=== PATIENT | female | born 1985 | race African-American/Black ===

== ENCOUNTER 2018-04-16 03:45 | Emergency (ER) | payer MEDICAID, OTHER ==
[~2018-04-16] VITALS: Ht 162.6 cm; Wt 104.3 kg
[~2018-04-16 03:45] MED LIST: ALBUAER3 IN; AZITTAB11 PO; IPRIH IN; PRED-188 PO
[2018-04-16 04:00] VITALS: BP 127/77
[2018-04-16 05:30] LABS: Urine Bacteria NONE SEEN /hpf (None Seen); Urine Blood 3+ /uL (Negative); Urine Specific Gravity 1.017 (1.001-1.035); Urine WBC 105 /hpf (0 - 5)
[2018-04-16 06:07] LABS: Basophils # (auto) 0 uL; Basophils % (auto) 0.3 % (0.0-2.0); Eosinophils # (auto) 0.2 uL; Eosinophils % (auto) 3.4 % (0.0-7.0); Hematocrit 36.6 % (36.0-46.0); Hemoglobin 12.5 g/dL (12.2-16.2); Lymphocytes # (auto) 1.5 uL; Lymphocytes % (auto) 22.3 % (10.0-50.0); Mean Corpuscular Hemoglobin 30.4 pg (28.0-32.0); Mean Corpuscular Hgb Conc. 34.2 g/dL (32.0-36.0); Mean Corpuscular Volume 88.7 fL (80.0-100.0); Monocytes # (auto) 0.4 uL; Monocytes % (auto) 6.5 % (0.0-12.0); Neutrophils # (auto) 4.6 uL; Neutrophils % (auto) 67.5 % (37.0-80.0); Nucleated Red Blood Cells % 0.1 %; Platelet Count (auto) 399 10^3/uL (140-450); Red Blood Cells 4.13 10^6/uL (4.0-5.20); Red Cell Distribution Width 14.3 % (11.8-14.3); White Blood Cell 6.8 10^3/uL (4.4-10.8)
[2018-04-16 06:25] LABS: Albumin 3.3 g/dL (3.4-5.0); BUN/Creatinine Ratio 11.9; Calcium 8.5 mg/dL (8.5-10.1); Potassium 3.9 mmol/L (3.5-5.1)
[2018-04-16 06:27] LABS: Bilirubin, Total 0.3 mg/dL (0.2-1.0); Total Protein 7.9 g/dL (6.4-8.2)
== END 2018-04-16 08:43 | disposition home or self-care (01) ==
LOC: ER 03:50
DX: O23.41 Unspecified infection of urinary tract in pregnancy, first trimester (principal); J45.909 Unspecified asthma, uncomplicated; Z79.899 Other long term (current) drug therapy; Z79.2 Long term (current) use of antibiotics; Z3A.09 9 weeks gestation of pregnancy
CPT/HCPCS: 36415; 76801; 80053; 81001; 84702; 85025

== ENCOUNTER 2018-08-17 15:19 | Observation (INO) | payer MEDICAID ==
[2018-08-17] MEDS ORDERED: PREN-96 PO (17:50)
== END 2018-08-17 17:10 | disposition home or self-care (01) | DRG 566 ==
LOC: LDRP 15:19
PROVIDERS: ADMIT Specialist; ATTEND Specialist
DX: O26.892 Other specified pregnancy related conditions, second trimester (principal); R10.30 Lower abdominal pain, unspecified; R51 Headache; Z3A.26 26 weeks gestation of pregnancy
CPT/HCPCS: 59025; 81002; G0378

== ENCOUNTER 2018-10-03 22:33 | Observation (INO) | payer MEDICAID ==
[~2018-10-03 22:33] MED LIST changes: +PREN-96 PO
[2018-10-03 23:34] LABS: Urine Bacteria FEW /hpf (None Seen); Urine Blood Negative /uL (Negative); Urine Mucus FEW (None Seen); Urine Specific Gravity 1.021 (1.001-1.035); Urine WBC 2 /hpf (0 - 5)
[2018-10-03 23:42] LABS: Alcohol, Urine < 3.0 mg/dL (0-5); Amphetamine Screen, Urine NEGATIVE (NEGATIVE); Barbiturate Scree,Urine NEGATIVE (NEGATIVE); Benzodiazephine Screen, Urine NEGATIVE (NEGATIVE); Cannabinoid Screen, Urine NEGATIVE (NEGATIVE); Cocaine Screen, Urine NEGATIVE (NEGATIVE); Opiate Scree,Urine NEGATIVE (NEGATIVE); Phencyclidine Screen, Urine NEGATIVE (NEGATIVE)
== END 2018-10-04 00:09 | disposition home or self-care (01) | DRG 566 ==
LOC: LDRP 22:33
PROVIDERS: ADMIT Specialist; ATTEND Specialist
DX: O26.893 Other specified pregnancy related conditions, third trimester (principal); R10.9 Unspecified abdominal pain; Z3A.33 33 weeks gestation of pregnancy
CPT/HCPCS: 59025; 80307; 81001; 81002; G0378

== ENCOUNTER 2018-10-31 23:45 | Observation (INO) | payer MEDICAID ==
[~2018-10-31] VITALS: Ht 162.6 cm; Wt 105.2 kg
[2018-11-01 00:48] LABS: Urine Bacteria FEW /hpf (None Seen); Urine Blood Negative /uL (Negative); Urine Mucus FEW (None Seen); Urine Specific Gravity 1.018 (1.001-1.035); Urine WBC 3 /hpf (0 - 5)
[2018-11-01] MEDS ORDERED: LACTATED RINGER'S 2,000 ML IV ONE (01:00)
[2018-11-01 01:05] LABS: Alcohol, Urine < 3.0 mg/dL (0-5); Barbiturate Scree,Urine NEGATIVE (NEGATIVE); Benzodiazephine Screen, Urine NEGATIVE (NEGATIVE); Cannabinoid Screen, Urine NEGATIVE (NEGATIVE); Cocaine Screen, Urine NEGATIVE (NEGATIVE); Opiate Scree,Urine NEGATIVE (NEGATIVE); Phencyclidine Screen, Urine NEGATIVE (NEGATIVE)
[2018-11-01 01:08] LABS: Amphetamine Screen, Urine NEGATIVE (NEGATIVE)
== END 2018-11-01 04:13 | disposition home or self-care (01) | DRG 566 ==
LOC: LDRP 23:45
PROVIDERS: ADMIT Specialist; ATTEND Specialist
DX: O62.9 Abnormality of forces of labor, unspecified (principal); Z3A.37 37 weeks gestation of pregnancy
CPT/HCPCS: 80307; 81001; G0378; 59025; 81002; 96365; 96366

== ENCOUNTER 2021-04-30 04:07 | Emergency (ER) | payer MEDICAID, OTHER ==
[~2021-04-30] VITALS: Ht 160 cm; Wt 102.1 kg
[2021-04-30] MEDS ORDERED: ONDANSETRON ODT 4 MG TAB PO ONE ×2 (04:30)
[2021-04-30] MEDS ORDERED: ACETAMINOPHEN 500 MG TAB PO ONE (05:00)
[2021-04-30 06:17] LABS: Amphetamine Screen, Urine NEGATIVE (NEGATIVE); Barbiturate Scree,Urine NEGATIVE (NEGATIVE); Benzodiazephine Screen, Urine NEGATIVE (NEGATIVE); Cannabinoid Screen, Urine NEGATIVE (NEGATIVE); Cocaine Screen, Urine NEGATIVE (NEGATIVE); Opiate Scree,Urine NEGATIVE (NEGATIVE); Phencyclidine Screen, Urine NEGATIVE (NEGATIVE)
[2021-04-30 06:58] LABS: Basophils # (auto) 0.1 10 ^3/uL (0-0.2); Basophils % (auto) 0.8 % (0.0-2.0); Eosinophils # (auto) 0.1 10 ^3/uL (0-0.8); Hematocrit 33.3 % (36.0-46.0); Hemoglobin 11.3 g/dL (12.2-16.2); Lymphocytes # (auto) 1.9 10 ^3/uL (0.4-5.4); Lymphocytes % (auto) 21.9 % (10.0-50.0); Mean Corpuscular Hemoglobin 30.5 pg (28.0-32.0); Mean Corpuscular Hgb Conc. 33.9 g/dL (32.0-36.0); Monocytes # (auto) 0.5 10 ^3/uL (0-1.3); Monocytes % (auto) 5.5 % (0.0-12.0); Neutrophils # (auto) 6.3 10 ^3/uL (1.6-8.6); Neutrophils % (auto) 70.8 % (37.0-80.0); Nucleated Red Blood Cells % 0.1 %; Red Cell Distribution Width 13.7 % (11.8-14.3); White Blood Cell 8.9 10^3/uL (4.4-10.8)
[2021-04-30 07:05] LABS: Urine Bacteria MOD /hpf (None Seen); Urine Blood TRACE /uL (Negative); Urine Hyaline Cast FEW /lpf (0 - 2); Urine Mucus FEW (None Seen); Urine Specific Gravity 1.022 (1.001-1.035); Urine WBC 42 /hpf (0 - 5)
[2021-04-30 07:21] LABS: Albumin 3.1 g/dL (3.4-5.0); BUN/Creatinine Ratio 10.9; Calcium 8.6 mg/dL (8.5-10.1); Potassium 4.2 mmol/L (3.5-5.1)
[2021-04-30 07:27] LABS: Bilirubin, Total 0.4 mg/dL (0.2-1.0)
[2021-04-30] MEDS ORDERED: CEPH-509 PO (08:29)
[2021-04-30 09:00] VITALS: BP 129/75
== END 2021-04-30 09:26 | disposition home or self-care (01) ==
LOC: ER 04:09
DX: S06.0X0A Concussion without loss of consciousness, initial encounter (principal); O20.8 Other hemorrhage in early pregnancy; O23.41 Unspecified infection of urinary tract in pregnancy, first trimester; N39.0 Urinary tract infection, site not specified; O99.311 Alcohol use complicating pregnancy, first trimester; Z79.2 Long term (current) use of antibiotics; Z79.899 Other long term (current) drug therapy; O99.511 Diseases of the respiratory system complicating pregnancy, first trimester; J45.909 Unspecified asthma, uncomplicated; Z3A.12 12 weeks gestation of pregnancy; Y04.2XXA Assault by strike against or bumped into by another person, initial encounter; Y93.89 Activity, other specified; Y92.89 Other specified places as the place of occurrence of the external cause; Y99.8 Other external cause status
CPT/HCPCS: 36415; 70450; 73600; 76801; 80053; 80307; 81001; 84702; 85025; 99285; Q0162

== ENCOUNTER 2022-05-21 21:35 | Observation (INO) | payer OTHER ==
[~2022-05-21 21:35] MED LIST changes: +ACET-1080 PO; +CEPH-509 PO
[2022-05-21] MEDS ORDERED: ASPI-543 PO (22:37)
== END 2022-05-22 00:46 | disposition home or self-care (01) ==
LOC: LDRP 21:35
PROVIDERS: ADMIT Obstetrics & Gynecology; ATTEND Obstetrics & Gynecology
DX: O26.892 Other specified pregnancy related conditions, second trimester (principal); R10.9 Unspecified abdominal pain; Z3A.27 27 weeks gestation of pregnancy
CPT/HCPCS: 59025; 76805; 81002; 94760; G0378